=== PATIENT | male | born 1940 | race Caucasian/White ===

== ENCOUNTER 2017-08-29 14:00 | Emergency (ER) | payer OTHER ==
[~2017-08-29] VITALS: Ht 177.8 cm; Wt 83.4 kg
[~2017-08-29 14:00] MED LIST: ASPIR-LOW81 MG PO; ATORVASTATIN CA80 MG PO; Aggrenox PO; Aspirin E.C. PO; CLOPIDOGREL75 MG PO; FISH OIL300 MG PO; FLEXERIL10 MG PO; Fish Oil PO; Flexeril PO; Habitrol,Nicoderm CQ TD; KEPPRA500 MG PO; LISINOPRIL2.5 MG PO; LOPRESSOR25 MG PO; Levaquin PO; ZOCOR40 MG PO; Zebeta PO; Zocor PO
[2017-08-29] MEDS ORDERED: KEPPRA500 MG PO (14:12)
[2017-08-29 15:15] VITALS: BP 129/71
== END 2017-08-29 15:17 | disposition home or self-care (01) ==
LOC: EME 14:00
DX: G40.909 Epilepsy, unspecified, not intractable, without status epilepticus (principal); Z91.14 Patient's other noncompliance with medication regimen; Z95.1 Presence of aortocoronary bypass graft; F17.200 Nicotine dependence, unspecified, uncomplicated
CPT/HCPCS: 80047; 99281; 99285